=== PATIENT | male | born 1965 | race Caucasian/White ===

== ENCOUNTER 2021-07-17 08:40 | Emergency (ER) | payer MEDICARE, MEDICAID ==
[~2021-07-17] VITALS: Ht 177.8 cm; Wt 86.4 kg
[~2021-07-17 08:40] MED LIST: DOXY100T2 PO; HYDR-4383 PO; META-25 PO; NORCO10T PO; SENN-28 PO
[2021-07-17 08:45] VITALS: BP 147/84
--- NOTE | 2021-07-17 12:20 | NUR ---
Pt stated that he fell 2 days ago and both knees splayed out laterally. Painful to walk.
[2021-07-17] MEDS ORDERED: orphenadrine citrate 60mg/2ml inj. IM ONE (12:40)
[2021-07-17] MEDS ORDERED: ketorolac tromethamine 15mg/ml inj. IM ONE (12:40)
[2021-07-17] MEDS ORDERED: ketorolac trometh. 30mg/ml inj. IM ONE (12:40)
--- NOTE | 2021-07-17 12:57 | NUR ---
Pt and given an understands d/c instructions. Out of the ER via wheelchair.
== END 2021-07-17 12:58 | disposition home or self-care (01) ==
LOC: ER 08:40
DX: S80.01XA Contusion of right knee, initial encounter (principal); S80.02XA Contusion of left knee, initial encounter; G89.29 Other chronic pain; F17.200 Nicotine dependence, unspecified, uncomplicated; F12.90 Cannabis use, unspecified, uncomplicated; Z88.0 Allergy status to penicillin; Z79.2 Long term (current) use of antibiotics; Z79.899 Other long term (current) drug therapy; W19.XXXA Unspecified fall, initial encounter; Y93.89 Activity, other specified; Y92.89 Other specified places as the place of occurrence of the external cause; Y99.8 Other external cause status
CPT/HCPCS: 73565; 96372; 99284; J1885; J2360

== ENCOUNTER 2021-08-07 14:13 | Emergency (ER) | payer MEDICARE, MEDICAID ==
[~2021-08-07] VITALS: Ht 177.8 cm; Wt 87.8 kg
[2021-08-07 14:41] VITALS: BP 133/73
== END 2021-08-07 16:17 | disposition left against medical advice (07) ==
LOC: ER 14:13
DX: M54.2 Cervicalgia (principal); Z53.21 Procedure and treatment not carried out due to patient leaving prior to being seen by health care provider

== ENCOUNTER 2022-07-20 06:05 | Emergency (ER) | payer MEDICARE, MEDICAID ==
[~2022-07-20] VITALS: Ht 177.8 cm; Wt 90.0 kg
[2022-07-20 06:08] VITALS: BP 126/84
[2022-07-20] MEDS ORDERED: proparacaine 0.5% ophthalmic drops 15ml EACHEYE STA (06:38)
[2022-07-20] MEDS ORDERED: ERYT1OIN6 EACHEYE (07:39)
[2022-07-20] MEDS ORDERED: erythromycin ophthalmic ointment 1gm tube RIGHTEYE ONE (07:40)
== END 2022-07-20 08:27 | disposition home or self-care (01) ==
LOC: ER 06:06
DX: S05.01XA Injury of conjunctiva and corneal abrasion without foreign body, right eye, initial encounter (principal); G89.29 Other chronic pain; M54.9 Dorsalgia, unspecified; F12.10 Cannabis abuse, uncomplicated; Z88.0 Allergy status to penicillin; Z88.8 Allergy status to other drugs, medicaments and biological substances; Z88.6 Allergy status to analgesic agent; Z79.899 Other long term (current) drug therapy; X58.XXXA Exposure to other specified factors, initial encounter; Y93.89 Activity, other specified; Y92.89 Other specified places as the place of occurrence of the external cause; Y99.8 Other external cause status
CPT/HCPCS: 99283; A6410